=== PATIENT | female | born 1940 | race Caucasian/White ===

== ENCOUNTER → 2017-02-11 | Outpatient (CLI) | payer MEDICARE ==
[~2017-02-11] MED LIST: IOHEXOL 300 MG/ML 100ml INJECTION ONE; NORMAL SALINE 100 ML ONE; SALINE FLUSH 10ml SYRINGE ONE
[2017-02-11 08:36] LABS: BASOPHILS % (AUTO) 0.4 % (0-2); EOSINOPHILS # (AUTO) 0.2 T/MM3 (0-0.5); EOSINOPHILS % (AUTO) 2.2 % (0-4); HCT - HEMATOCRIT 42.5 % (36-46); HGB - HEMOGLOBIN 13.7 GM/DL (12-16); IMMATURE GRANULOCYTE # (AUTO) 0.03 T/MM3 (0.00-0.03); IMMATURE GRANULOCYTE % (AUTO) 0.4 % (0.0-0.5); LYMPHOCYTES # (AUTO) 1.6 T/MM3 (1-4.8); LYMPHOCYTES % (AUTO) 20.6 % (23-45); MEAN CORPUSCULAR HGB 29.2 UUG (26-34); MEAN CORPUSCULAR HGB CONC(MCHC 32.2 GM/DL (31-37); MEAN CORPUSCULAR VOLUME 90.6 UM3 (80-100); MEAN PLATELET VOLUME 9.9 UM3 (9.4-12.4); MONOCYTES # (AUTO) 0.4 T/MM3 (0-0.8); MONOCYTES % (AUTO) 5.7 % (0-9.0); NEUTROPHILS #(AUTO)-ABSOLUTE 5.4 T/MM3 (1.8-7.7); NEUTROPHILS % (AUTO) 70.7 % (33-66); RED BLOOD COUNT 4.69 M/MM3 (4.00-5.20); WBC - WHITE BLOOD COUNT 7.6 T/MM3 (4.5-11.0)
[2017-02-11 08:45] LABS: ALBUMIN/GLOBULIN RATIO 1.3 RATIO (1.1-2.2); ALKALINE PHOSPHATASE 66 U/L (38-126); ALT (SGPT) 42 U/L (9-52); ANION GAP 15 MEQ/L (5-15); AST (SGOT) 20 U/L (14-36); BUN/CREATININE RATIO 29 RATIO (6-26); CALCIUM 9.3 MG/DL (8.4-10.2); CHLORIDE 100 MEQ/L (98-107); CO2 - CARBON DIOXIDE 27 MEQ/L (22-30); CREATININE 0.7 MG/DL (0.7-1.2); GLOMERULAR FILTRATION RATE 82; GLUCOSE 210 MG/DL (65-110); LDH 410 U/L (313-618); POTASSIUM 4.5 MEQ/L (3.6-5); SODIUM 142 MEQ/L (134-144); TOTAL PROTEIN 7.2 G/DL (6.3-8.2)
--- NOTE | 2017-02-11 12:42 | DI ---
Indication: Right breast cancer, history of partial hysterectomy, bilateral mastectomy, and right lymph node resection. Procedure: CT CHEST/ABD/PELVIS WC: Encounter: Initial Comparison: None available Technique: Contiguous axial CT images of the chest, abdomen, and pelvis were obtained after administration of 100 mL intravenous contrast. Coronal and sagittal reformatted images were also obtained. Automated Exposure Control and Iterative Reconstruction dose reducing techniques were utilized. FINDINGS: Chest: Scattered subsegmental atelectasis with no pulmonary nodule, mass, or focal consolidation. No endoluminal lesion. No pleural effusions or pneumothorax. The visualized thyroid gland appears normal. No mediastinal or hilar lymphadenopathy. The visualized esophagus appears normal. The heart is enlarged without pericardial effusion. Coronary arterial and thoracic aortic atherosclerotic calcifications. The great vessels of the thorax are otherwise within normal limits. Postoperative changes of bilateral mastectomy and axillary lymph node dissection with no axillary lymphadenopathy identified by CT size criteria. No acute osseous abnormality. No suspicious osteolytic or osteoblastic lesions. Degenerative disc disease of the thoracic spine. Abdomen: The liver is enlarged and hypodense but enhances homogeneously without focal mass. The gallbladder is distended and appears normal. No biliary ductal dilatation. The pancreas enhances homogeneously. The spleen is normal in size and enhancement. The adrenal glands are within normal limits. The kidneys enhance symmetrically and appear normal. The ureters are normal in course and caliber. The abdominal aorta is normal in course and caliber with aortoiliac atherosclerotic calcifications noted. The mesenteric arterial and venous structures appear patent. The stomach is partially distended and appears normal. Small bowel loops are normal in caliber without evidence of obstruction. Colonic diverticulosis without imaging evidence of acute diverticulitis. No CT evidence of acute appendicitis. No intra-abdominal free air, free fluid, focal fluid collections, or lymphadenopathy. No acute osseous abnormality. No suspicious osteolytic or osteoblastic lesions. Pelvis: The bladder is distended and appears normal. The uterus is surgically absent. No adnexal masses seen. No pelvic free fluid or lymphadenopathy. No acute osseous abnormality. No suspicious osteolytic or osteoblastic lesions. Degenerative spondylosis of the lumbar spine. Impression: 1. Postoperative changes of bilateral mastectomy and axillary lymph node dissection with no CT evidence of thoracic or abdominopelvic metastatic disease. 2. Hepatomegaly and steatosis. 3. Mild colonic diverticulosis without imaging evidence of acute diverticulitis. 4. Coronary arterial and aortoiliac atherosclerotic disease. 5. Degenerative spondylosis of the thoracolumbar spine. .
--- NOTE | 2017-02-11 13:04 | DI ---
Indication: ITS.REASON: C50.919 BREAST CA PROCEDURE: NM BONE SCAN, WHOLE BODY: Encounter: Subsequent Comparison: Prior CTs of the chest, abdomen, and pelvis of the same day Technique: 27.5 mCi of Tc-99m MDP was administered intravenously. Anterior and posterior planar whole-body and spot images were obtained. FINDINGS: The scan demonstrates the expected normal biodistribution for the radiotracer. There is probable degenerative uptake seen in shoulders, knees, ankles, and feet. There is no other abnormal radiotracer uptake to suggest bony metastasis. IMPRESSION: No evidence of metastatic disease to the skeleton. .
== END ==
LOC: IMA 08:13
PROVIDERS: ATTEND Internal Medicine Hematology & Oncology
DX: C50.411 Malignant neoplasm of upper-outer quadrant of right female breast (principal); I70.0 Atherosclerosis of aorta; K57.30 Diverticulosis of large intestine without perforation or abscess without bleeding; K76.0 Fatty (change of) liver, not elsewhere classified; M47.815 Spondylosis without myelopathy or radiculopathy, thoracolumbar region; Z90.13 Acquired absence of bilateral breasts and nipples
CPT/HCPCS: 36415; 71260; 74177; 78306; 80053; 82378; 83615; 85025; 86300; A9503; J7050; Q9967

== ENCOUNTER → 2017-03-04 | Outpatient (CLI) | payer MEDICARE ==
--- NOTE | 2017-03-04 15:20 | DI ---
Indication: ITS.REASON: R22.9 Localized swelling, mass and lump, unspecified ANKLE RIGHT 3 VIEW Comparison: None Findings: There is no acute fracture, dislocation or malalignment identified. The patient however does show a large either focal area of swelling or mass density. Impression: 1. No acute osseous abnormality. 2. Focal swelling laterally which could represent either swelling or a more focal mass density and further workup may be worthwhile. .
--- NOTE | 2017-03-04 16:29 | DI ---
Indication: ITS.REASON: R22.9 Localized swelling, mass and lump, unspecified FOOT RIGHT 3 VIEWS Comparison: None Findings: Patient shows the area of swelling along the lateral ankle region. No acute bony fracture is noted. Impression: No acute osseous abnormality with some lateral soft tissue swelling particularly about the ankle region. .
== END ==
LOC: IMA 14:40
PROVIDERS: ATTEND Family Medicine
DX: M25.471 Effusion, right ankle (principal)